=== PATIENT | female | born 1960 | race Caucasian/White ===

== ENCOUNTER → 2019-09-09 09:51 | Outpatient (BNVA) | payer MEDICARE, MEDICAID, SELFPAY | PROVIDERS: PCP Family Medicine; Referring Provider Family Medicine; Visit Provider Surgery | DX: L72.3 Sebaceous cyst (principal) | CPT/HCPCS: 99212; 99213 ==

== ENCOUNTER 2024-06-21 11:55 | Emergency (ER) | payer MEDICARE, MEDICAID, SELFPAY ==
[2024-06-21] VITALS (18 sets, daily range): BP systolic 120–161; BP diastolic 51–81; PULSE 63–89; RESP 16; TEMP 37; O2SAT 95–98
--- NOTE | 2024-06-21 13:15 | DI.CT_ITS ---
Exam(s) CT ABDOMEN PELVIS W EXAM: CT ABDOMEN PELVIS W CLINICAL HISTORY: RIGHt flank and lower quadrant tenderness, n/v/d. TECHNIQUE: Imaging Protocol: Axial computed tomography images with coronal and sagittal reformatted images were created and reviewed CONTRAST MATERIAL: Intravenous: Omnipaque-350 100cc Oral: None COMPARISON: No exams were available for comparison FINDINGS: VISUALIZED LUNG BASES: No nodules nor pleural effusions evident. ABDOMEN: There is no ascites. LIVER: Appears somewhat cirrhotic. There are no focal hepatic lesions evident. No dilated intrahepa tic ducts. GALLBLADDER/BILIARY: The gallbladder surgically absent. CBD diameter is commensurate with post danni cystectomy status. There are no dilated intrahepatic ducts. PANCREAS: No evidence of pancreatic mass nor dilatation of the pancreatic duct. SPLEEN: Spleen is not enlarged. No obvious intrasplenic lesions. Splenic and portal veins are paten t. Multiple dilated venous channels are noted medial to the spleen, these exhibiting diameter 9 mm, nonthrombosed. There are no esophageal varices and no evidence recanalization of the umbilical vein. ADRENALS: There are no significant adrenal masses. KIDNEYS:There are 2 small benign cysts in the anterior cortex of the left kidney, both measuring 1 cm and not requiring further imaging workup. No solid renal masses nor calculi nor hydronephrosis on e ither side.. ABDOMINAL AORTA: Abdominal aorta is calcified but not enlarged. Common iliac arteries also exhibit n ormal diameters. LYMPH NODES:There are multiple enlarged retroperitoneal lymph nodes. The largest of these measures 1 .7 cm., this immediately subjacent to the left renal vein right of center as it joins the IVC. Enlar ged lymph nodes also seen in mesentery medial to the duodenal C-loop. There are also slightly enlarg ed para-aortic lymph nodes. ABDOMINAL WALL: No evidence of significant anterior abdominal wall nor inguinal hernia. GI: There is no evidence of bowel obstruction, free air, nor abscess. No evidence of significant diverticular disease in the colon, including the sigmoid. PELVIS: GI: The appendix is not able to be identified as an independent structure. Possibly surgically absen t. There is no evidence of appendicitis nor diverticulitis. LYMPH NODES: There is no intrapelvic nor inguinal adenopathy. REPRODUCTIVE: Uterus is surgically absent. There are no abnormal adnexal masses nor free fluid in th e pelvis. URINARY BLADDER: No calculi nor obvious masses evident OSSEOUS: No fractures and no significant osseous lesions. IMPRESSION: 1. There is evidence of previous cholecystectomy, hysterectomy, and possible appendectomy. There is no significant dilatation of the biliary tree and there is no evidence of bowel obstruction, free air , nor abscess. 2. There are abnormally enlarged lymph nodes in the retroperitoneum measuring up to 1.7 cm and there is also mild periaortic adenopathy. This will require close follow-up. There is no adenopathy in th e pelvis and inguinal regions. No splenomegaly. 3. In addition to patent upper normal diameter splenic and portal veins there are also numerous venou s collaterals in the left side of the abdomen, these nonthrombosed vessels predominately draining int o the patent left renal vein. 4. Liver appears somewhat cirrhotic. No liver masses evident. Portal vein confluence and portal vei n as well as intrahepatic portal veins appear unremarkable. There are no esophageal varices evident. There is no ascites. Report called by myself to ER provider 06/21/2023 3:02 p.m RADIATION DOSE DELIVERED: Total DLP DATA REPOSITORY: All CT scans at this facility are submitted to the National Radiology Data Registry (NRDR) Dose Index Registry (DIR) with the [employer] (A[employer]). RADIATION OPTIMIZATION: All CT scans at this facility use at least one of these dose optimization te chniques: automated exposure control; mA and/or kV adjustment per patient size (includes targeted exa ms where dose is matched to clinical indication); or iterative reconstruction.
--- NOTE | 2024-06-21 13:15 | RT.EKG_ITS ---
APPROVED REPORT Exam: Resting ECG Reason for Exam: abdominal pain Patient Location: E HR:67 bpm ECG Measurements Heart Rate 67 AXIS IN 130 P 66 QRSd 96 QRS 65 QT 413 T 30 QTc 436 Conclusion Sinus rhythm...normal P axis, V-rate 60- 99 sinus rhythm, normal axis, normal intervals non ischemic
[2024-06-21] MEDS: MORPHine 4 MG/ML SYR IVP (13:35)
[2024-06-21 13:38] LABS: BE (Venous) 3 mmol/L (-2-3); HCO3 (Venous) 28 mmol/L (23-28); O2 Sat (Venous) 70 %; TCO2 (Venous) 25 mmol/L (24-29); pCO2 (Venous) 48 mmHg (41-51); pH (Venous) 7.37 (7.31-7.41); pO2 (Venous) 37 mmHg
[2024-06-21 13:40] LABS: Abs Immature Grans 0.03 10^3/uL (0.0-0.06); Absolute Basophil Count 0.03 10^3/uL (0.0-0.2); Absolute Eosinophil Count 0.14 10^3/uL (0.0-0.7); Absolute Lymphocyte Count 2.35 10^3/uL (1.2-3.4); Absolute Monocyte Count 0.36 10^3/uL (0.1-0.8); Absolute Neutrophil Count 4.64 10^3/uL (1.2-6.7); Basophils % 0.4 %; Eosinophils % 1.9 %; HCT 40.7 % (36.0-46.0); HGB 14.2 g/dL (11.2-15.7); Immature Grans % 0.4 %; Lymphocytes % 31.1 %; MCH 31.5 pg (27.0-33.0); MCHC 34.9 % (32.0-36.0); MCV 90 fL (80-95); MPV 8.5 fL (8.0-11.0); Monocytes % 4.8 %; Neutrophils % 61.4 %; Platelet Count 178 10^3/uL (130-400); RBC 4.51 10^6/uL (3.93-5.22); RDW 12.4 % (11.7-14.6); RDW-SD 40.4 fL; WBC 7.55 10^3/uL (4.4-10.8)
[2024-06-21 13:41] LABS: Lactate 1.1 mmol/L (0.6-1.4)
[2024-06-21] MEDS: Normal Saline 500 ML 1000 ML IV (13:55)
[2024-06-21] MEDS: Prochlorperazine 10 MG/2 ML VIAL 5 MG IVP (13:56)
[2024-06-21 13:58] LABS: ALT 34 U/L (14-59); AST 28 U/L (15-37); Albumin 3.9 g/dL (3.4-5.0); Alkaline Phosphatase 91 U/L (46-116); Anion Gap 11.6 mmol/L (3-11); BUN 11 mg/dL (7-18); Bilirubin, Total 0.51 mg/dL (0.2-1.0); CO2 26.4 mmol/L (21.0-32.0); CREATININE 0.8 mg/dL (0.55-1.02); Calcium 8.9 mg/dL (8.5-10.1); Chloride 106 mmol/L (98-107); Estimated GFR 82.74 (mL/min/1.73m2); Glucose 83 mg/dL (74-106); Lipase 38 U/L (16-77); Magnesium 1.9 mg/dL (1.8-2.4); Potassium 3.6 mmol/L (3.5-5.1); Sodium 144 mmol/L (136-145); Total Protein 7.5 g/dL (6.4-8.2)
[2024-06-21] MEDS: Omnipaque 350 MG/ML 100 ML BTL IJ (14:11)
[2024-06-21] MEDS: Normal Saline - Diluent 50 ML VIAL IJ (14:11)
[2024-06-21 14:20] LABS: Bilirubin Negative (Negative); Blood Negative (Negative); Clarity Sl Cloudy (Clear); Glucose Negative (Negative); Ketones Negative (Negative); Leukocyte Esterase Negative (Negative); Nitrite Negative (Negative); Specific Gravity 1.015 (1.005-1.025); Urobilinogen 0.2 mg/dL (Up to 0.2)
--- NOTE | 2024-06-21 15:25 | W.ED.GENAD ---
Discharge Plan Disposition Patient Disposition: Home Condition: Stable Discharge Details Clinical Impression: Abdominal pain, Nausea & vomiting, Abdominal lymphadenopathy Primary Care Provider: Sabino Muñoz ED Provider: Yessenia De La Cruz Home Meds and New Rx's Prescriptions: Continued lorazepam [Ativan] 1 mg tablet 1 mg PO QHS PRN Spiriva Respimat 2.5 mcg/actuation mist 2 puff IH DAILY ibuprofen [Advil Liqui-Gel] 200 MG capsule 400 mg PO Q4H PRN hydrocodone-acetaminophen [Vicodin] 1 EACH tablet 2 tab-cap PO Q6H PRN Humulin N NPH U-100 Insulin 100 unit/mL suspension 20 unit subcut BID dexlansoprazole [Dexilant] 30 mg capsule,biphase delayed releas 30 mg PO DAILY Discharge Instructions Instructions: Abdominal pain, Lymphadenitis (DC) Additional Instructions: Your CT abdomen and pelvis does not show significant acute abnormality You do have lymph nodes in the back portion of your abdomen that will need to be reassessed, please it will follow-up with your doctor for repeat assessment this week May take Zofran as needed for nausea and vomiting Ibuprofen and Tylenol as needed for pain Please return should you develop worsening pain, fever, chills, uncontrolled nausea or vomiting, or should any new or worsening symptoms arise. Referrals: Sabino Muñoz [Primary Care Provider] - 2 days Discharge Data Discharge Date/Time-TO BE ENTERED AT DEPARTURE: 06/21/24 15:52 HPI General Date/Time Provider Initiated Documentation: 06/21/24 13:08. HPI Narrative: This 64-year-old female with history of insulin-dependent diabetes presents with report of right lower quadrant tenderness some mild right flank tenderness present for the past 48 hours. Patient is also had nausea vomiting and diarrhea. Her partner does not have similar symptoms. Denies any chest pain or shortness of breath. Denies any dizziness or weakness. States her blood sugars been high at home. Denies any blood in vomitus or stool currently. Denies alcohol use. Smokes tobacco daily. Denies any additional illicit drug use. Related Data Home Medications ?Medication ?Instructions ?Recorded ?Confirmed Advil Liqui-Gel 200 mg capsule 400 mg PO Q4H PRN 10/26/15 06/21/24 (ibuprofen) Vicodin 5 mg-300 mg tablet 2 tab-cap PO Q6H PRN 10/26/15 06/21/24 (hydrocodone-acetaminophen) lorazepam 1 mg tablet (Ativan) 1 mg PO QHS PRN 09/09/19 06/21/24 tiotropium bromide 2.5 2 puff inhalation DAILY 09/09/19 06/21/24 mcg/actuation mist for inhalation (Spiriva Respimat) dexlansoprazole 30 mg 30 mg PO DAILY 06/21/24 06/21/24 capsule,biphase delayed release (Dexilant) insulin NPH isoph U-100 human 100 20 unit subcut BID 06/21/24 06/21/24 unit/mL subcutaneous suspension (Humulin N NPH U-100 Insulin (isophane susp)) Allergies Allergy/AdvReac Type Severity Reaction Status Date / Time cyclobenzaprine HCl (From Allergy Visual Unverified 06/21/24 12:05 Flexeril) Disturbances fentanyl Allergy Unknown Unverified 06/21/24 12:05 tetracycline Allergy Skin Rash Unverified 06/21/24 12:05 General Stated Complaint: Abd Prob GEORGE: 3 Exam Narrative Exam Narrative: Alert and oriented, no significant acute distress, pupils equal round reactive to light and accommodation, no scleral icterus, lungs clear to auscultation, cardiac rate rhythm regular, distal pulses intact, right lower quadrant right upper quadrant tenderness without rebound or guarding, no CVA tenderness, alert and oriented x 4 Course Vital Signs Vital signs: Vital Signs Temperature 37.0 C 06/21/24 12:02 Pulse 89 06/21/24 12:02 Respiratory Rate 16 06/21/24 12:02 Blood Pressure 161/75 H 06/21/24 12:02 Pulse Oximetry 96 06/21/24 12:02 Temperature 37.0 C 06/21/24 15:05 Temperature Source Skin 06/21/24 15:05 Pulse 65 06/21/24 15:05 Respiratory Rate 16 06/21/24 15:05 Respiratory Effort Normal, Non-Labored, Short of Breath 06/21/24 15:05 Blood Pressure 130/51 L 06/21/24 15:05 Blood Pressure Mean 80 06/21/24 14:31 Pulse Oximetry 98 06/21/24 15:05 Oxygen Delivery Method Room Air 06/21/24 15:05 Oxygen Flow Rate 0 06/21/24 12:02 Pain Level 10 06/21/24 15:05 Lab/Test Results Lab/Test Results: Laboratory Tests Range/Units 06/21/24 06/21/24 13:35 14:10 WBC (4.4-10.8) 10^3/uL 7.55 RBC (3.93-5.22) 10^6/uL 4.51 Hgb (11.2-15.7) g/dL 14.2 Hct (36.0-46.0) % 40.7 MCV (80-95) fL 90 MCH (27.0-33.0) pg 31.5 MCHC (32.0-36.0) % 34.9 RDW (11.7-14.6) % 12.4 Plt Count (130-400) 10^3/uL 178 MPV (8.0-11.0) fL 8.5 Immature Gran % % 0.4 Neutrophils % % 61.4 Lymphocytes % % 31.1 Monocytes % % 4.8 Eosinophils % % 1.9 Basophils % % 0.4 Nucleated RBC % (0.0-0.3) % 0.0 Absolute Neutrophils (1.2-6.7) 10^3/uL 4.64 Absolute Lymphocytes (1.2-3.4) 10^3/uL 2.35 Absolute Monocytes (0.1-0.8) 10^3/uL 0.36 Absolute Eosinophils (0.0-0.7) 10^3/uL 0.14 Absolute Basophils (0.0-0.2) 10^3/uL 0.03 VBG pH (7.31-7.41) 7.37 VBG pCO2 (41-51) mmHg 48 VBG pO2 mmHg 37 VBG HCO3 (23-28) mmol/L 28 VBG Total CO2 (24-29) mmol/L 25 VBG O2 Saturation % 70 VBG Base Excess (-2-3) mmol/L 3 VBG Lactate (0.6-1.4) mmol/L 1.1 Sodium (136-145) mmol/L 144 Potassium (3.5-5.1) mmol/L 3.6 Chloride (98-107) mmol/L 106 Carbon Dioxide (21.0-32.0) mmol/L 26.4 Anion Gap (3-11) mmol/L 11.6 H BUN (7-18) mg/dL 11 Creatinine (0.55-1.02) mg/dL 0.8 Est GFR (CKD-EPI 2020) (mL/min/1.73m2) 82.74 Glucose (74-106) mg/dL 83 Calcium (8.5-10.1) mg/dL 8.9 Magnesium (1.8-2.4) mg/dL 1.9 Total Bilirubin (0.2-1.0) mg/dL 0.51 AST (15-37) U/L 28 ALT (14-59) U/L 34 Alkaline Phosphatase (46-116) U/L 91 Total Protein (6.4-8.2) g/dL 7.5 Albumin (3.4-5.0) g/dL 3.9 Lipase (16-77) U/L 38 Urine Color (Yellow) Yellow Urine Clarity (Clear) Sl Cloudy Urine pH (5-8) 7.0 Ur Specific [place] (1.005-1.025) 1.015 Urine Protein (Neg-Trace) mg/dL Negative Urine Ketones (Negative) mg/dL Negative Urine Blood (Negative) Negative Urine Nitrite (Negative) Negative Urine Bilirubin (Negative) Negative Urine Urobilinogen (Up to 0.2) mg/dL 0.2 Ur Leukocyte Esterase (Negative) Negative Urine Glucose (Negative) mg/dL Negative Medical Decision Making 64-year-old female in no significant acute's multiple comorbidities, CT was ordered for further evaluation. CT with evidence of vague lymphadenopathy without any evidence of acute appendicitis or surgical pathology. Patient reports symptomatic improvement after supportive care. Has pain control for home provided by her primary care physician. Recommended to follow-up with her doctor on Saturday because she will need close reassessment regarding this lymphadenopathy. Given antiemetics for home as needed. I spoke with radiologist regarding patient's CT as well who did not feel patient have acute pathology. No leukocytosis on labs review and urinalysis within normal limits, no evidence of diabetic ketoacidosis. Return precautions reviewed and patient expressed understanding Quality:SDOH Health Related Social Needs: No Data to Display PFSH All Active Problems (Updated 06/21/24 @ 15:26 by AMANDA Erickson) Abdominal lymphadenopathy (Acute) Nausea & vomiting (Acute) Abdominal pain (Acute) Sebaceous cyst (Acute) Social History Smoking/Tobacco Use Status: Never Smoking risk assessment performed?: Yes Current gender identity: female
[2024-06-21] MEDS: Ondansetron O.D.T. 4 MG TABEF, 3 TABS/BTL PO (15:53)
== END 2024-06-21 15:52 | disposition home or self-care (01) ==
PROVIDERS: Emergency Provider Physician Assistant; PCP Family Medicine
DX: R10.32 Left lower quadrant pain (principal); R11.2 Nausea with vomiting, unspecified; R59.0 Localized enlarged lymph nodes; E11.9 Type 2 diabetes mellitus without complications; Z79.4 Long term (current) use of insulin
CPT/HCPCS: 80053; 82805; 83690; 93005; 96374; 96375; 99285; 74177; 81003; 83605; 83735; 85025; 93010; J0780; J2270; J3490